=== PATIENT | male | born 1955 | race Caucasian/White ===

== ENCOUNTER 2018-03-13 11:19 | Inpatient (IN) | payer MEDICARE, BC ==
[~2018-03-13] VITALS: Ht 175.3 cm; Wt 107.0 kg
--- NOTE | ~2018-03-13 | PROC ---
[address] [address] PROCEDURE REPORT Name: KATT GEORGE Room: [address] IN M.R.#: [id number] Admission: 03/13/18 Attend Phys: Landon Ortiz, Discharge: 03/16/18 Date of : 55 Report #: [id number] THIS REPORT FOR: //name// For GI report, please see the Provation report in Perceptive 7. By: 1008Medical Records Staff AZUCENA /SLIM
[~2018-03-13 11:19] MED LIST: AMBIEN 5 MG TABL5 M1 PO; ASPIR 8181 M1 PO; BUTALB-APAP-CA1 EACH PO; CARISOPRODOL 3350 MG PO; CELEXA20 MG PO; CRESTOR10 MG PO; EXCEDRIN CAPLE1 EACH PO; FENOFIBRATE160 MG PO; HYDROXYZINE HCL25 M1 PO; MUCINEX D ER 11 EACH PO; MUCINEX TA600 MG/TA2 PO; NEURONTIN600 MG PO; NORCO 5-325 TA1 EACH PO; OMEPRAZOLE40 MG PO; REGLAN 10 MG TA10 MG PO; VITAMIN D2000 UNIT PO; VITAMINC500 PO; XANAX 0.5 MG0.5 MG PO; ZYRTEC10 MG PO; [UNRECOGNIZED DRUG - CODE] PO
[2018-03-13 11:20] VITALS: BP 104/61
[2018-03-13 11:41] LABS: ABSOLUTE EOSINOPHILS 0.3 thou/uL (0.0-0.7); ABSOLUTE LYMPHOCYTES 2.4 thou/uL (0.8-5.3); ABSOLUTE MONOCYTES 0.8 thou/uL (0.0-1.2); ABSOLUTE NEUTROPHILS 2.7 thou/uL (1.6-8.1); BASOPHILS 0.8 %; EOSINOPHILS 5.1 %; HEMATOCRIT 37.8 % (42.0-52.0); HEMOGLOBIN 12.7 gm/dL (14.0-18.0); LYMPHOCYTES 37.8 %; MCH 33.6 pg (26.0-34.0); MCHC 33.6 g/dL (28.0-37.0); MCV 100.1 fL (80.0-100.0); MONOCYTES 13.1 %; MPV 8.1 fl. (7.2-11.1); NUCLEATED RBCS 0 /100WBC; PLATELET COUNT* 126 thou/uL (150-400); POLYS 43.2 %; RBC 3.77 mil/uL (4.50-6.00); RDW-CV 13.6 % (10.5-14.5); WBC 6.3 thou/uL (4.0-11.0)
[2018-03-13 11:47] LABS: ANION GAP 11 mmol/L (7-16); BUN 14 mg/dL (7-18); CALCIUM 8.2 mg/dL (8.5-10.1); CHLORIDE 108 mmol/L (98-107); CO2 22 mmol/L (21-32); GLUCOSE 146 mg/dL (70-99); POTASSIUM 3.8 mmol/L (3.5-5.1); SODIUM 141 mmol/L (136-145)
[2018-03-13 11:57] LABS: ALKALINE PHOSPHATASE 39 U/L (46-116); SGOT 44 U/L (15-37); SGPT 39 U/L (30-65); TOTAL BILIRUBIN 0.3 mg/dL (<0.1-1.0); TOTAL PROTEIN 6.3 g/dL (6.4-8.2); TROPONIN-I LEVEL <0.06 ng/mL (<0.06)
[2018-03-13 14:16] LABS: APTT 27.5 Seconds (25.0-31.3); INR 1.1; PROTIME 11.2 Seconds (9.20-11.50)
[2018-03-13 14:52] VITALS: BP 119/58
[2018-03-13 15:15] VITALS: BP 117/54
[2018-03-13 15:58] VITALS: BP 117/46
[2018-03-13] MEDS ORDERED: COLACE100 MG PO (16:03)
[2018-03-13] MEDS ORDERED: IBU600 MG PO (16:03)
[2018-03-13] MEDS ORDERED: AMITRIPTYLINE100 MG PO (16:04)
[2018-03-13] MEDS ORDERED: METFORMIN HCL500 MG PO (16:04)
[2018-03-13] MEDS ORDERED: ZYRTEC10 M5 PO (16:05)
[2018-03-13] MEDS ORDERED: REGLAN 10 MG TA10 MG PO (16:07)
--- NOTE | 2018-03-13 17:09 | NUR ---
PATIENT ADM TO FLOOR AT 1515, REPORT FROM KIMBERLEY LEE IN ER. PATIENT A&OX4, 2L O2 VIA NC, IV LEFT AC FLUIDS INFUSSING. UP STAND BY, STEADY GIAT. NO C/O PAIN/N/V AT THIS TIME. REVIEWED ADMISSION ASSESSMENT WHILE SISTER AT BEDSIDE. PATIENT LIVES WITH SISTER, SISTER HELPS CARE FOR PATIENT. REVIEWED HOME MEDICATIONS, UPDATED MED REC. CONSULTED NEPHROLOGY AND UROLOGY, NOTHING TO BE DONE AT THIS TIME. CONSULTED GI FOR CONSTIPATION/DIARRHEA, NOT SEEN YET. NO OTHER CONCERNS AT THIS TIME. APPROPRIATE AND COOPORATIVE WITH CARE.
[2018-03-13 21:49] LABS: URINE BILIRUBIN NEGATIVE (Negative); URINE BLOOD 1+ (Negative); URINE CLARITY CLEAR; URINE COLOR YELLOW; URINE GLUCOSE-RANDOM NEGATIVE (Negative); URINE KETONES NEGATIVE (Negative); URINE LEUKOCYTES-REFLEX NEGATIVE (Negative); URINE NITRITE-REFLEX NEGATIVE (Negative); URINE PROTEIN NEGATIVE (Negative); URINE SPECIFIC GRAVITY <= 1.005 (1.005-1.030); URINE UROBILINOGEN 0.2 E.U./dl (0.2-1.0)
[2018-03-13 21:57] LABS: BACTERIA-REFLEX 1-9 Few /HPF (None Seen); CASTS None Seen /LPF (None Seen); MUCUS 0-3 Light strn/LPF (None Seen); SQUAMOUS NONE SEEN /LPF (0-3); URINE RBC 3-10 Few /HPF (0-2); URINE WBC-REFLEX None Seen /HPF (0-5)
[2018-03-13 21:58] LABS: CRYSTALS None Seen /LPF (None Seen)
[2018-03-14] VITALS: BP 123/66
[2018-03-14 04:30] LABS: HEMATOCRIT 36.8 % (42.0-52.0); HEMOGLOBIN 12.5 gm/dL (14.0-18.0); MCH 33.8 pg (26.0-34.0); MCHC 33.9 g/dL (28.0-37.0); MCV 99.8 fL (80.0-100.0); MPV 8.3 fl. (7.2-11.1); RBC 3.68 mil/uL (4.50-6.00); RDW-CV 13.9 % (10.5-14.5); WBC 7.9 thou/uL (4.0-11.0)
[2018-03-14 05:08] LABS: CALCIUM 8.2 mg/dL (8.5-10.1); CREATININE 0.9 mg/dL (0.6-1.3); MAGNESIUM 1.2 mg/dL (1.8-2.4); POTASSIUM 3.4 mmol/L (3.5-5.1)
--- NOTE | 2018-03-14 05:27 | NUR ---
PATIENT SLEPT VERY LITTLE THIS SHIFT. PATIENT WAS UP TO BATHROOM ABOUT EVERY HOUR AND HALF. IV FLUIDS CONTINUE TO INFUSE AT 100 ML/HR. PATIENT WAS GIVEN EXCEDRIN ONCE FOR PAIN. WILL CONTINUE TO MONITOR.
[2018-03-14 07:40] VITALS: BP 105/56
--- NOTE | 2018-03-14 12:58 | EKG ---
[place] [address] ELECTROCARDIOGRAM REPORT Name: KATT GEORGE Room: [address] ADM IN M.R.#: [id number] Admission: 03/13/18 Attend Phys: Landon Ortiz, Discharge: Date of : 55 Report #: [id number] THIS REPORT FOR: //name// [facility] ED Test Date: 2018-03-13 Test Time: 11:44:09 Pat Name: KATT GEORGE Department: Room: [facility] Gender: M [employer] Fund Sales Agent: : 1955 Requested By: Ric Pelaez Order Number: [id number] MD: J Luis Chambers Measurements Intervals [place] Rate: 70 P: 24 ID: [id number] QRS: 88 QRSD: 110 T: -9 QT: 415 QTc: 448 Interpretive Statements Sinus rhythm Ventricular premature complex Consider right ventricular hypertrophy ST elevation, consider inferior injury No previous ECG available for comparison Electronically Signed On 03-14-2018 12:58:14 RAW JUICE WEIGHER by J Luis Chambers [email or web address] <ELECTRONICALLY SIGNED> By: J Luis Chambers MD, FACC 03/14/18 1258 1144 1144 J Luis Chambers MD, [facility] /EPI
[2018-03-14 13:03] LABS: CALCIUM 8.5 mg/dL (8.5-10.1); CREATININE 0.9 mg/dL (0.6-1.3); MAGNESIUM 1.4 mg/dL (1.8-2.4); POTASSIUM 3.7 mmol/L (3.5-5.1)
[2018-03-14 16:46] VITALS: BP 124/67
--- NOTE | 2018-03-14 17:42 | NUR ---
PATIENT A&OX4, FORGETFUL, ROOM AIR, IV LEFT AC FLUIDS INFUSSING. UP STAND BY, STEADY GAIT. C/O GENERAL SORENESS FROM PREVIOUS FALL, RELEIF WITH MEDICATION. REPORTED DIARRHEA PRIOR TO ADMISSION, NO BM SINCE ARRIVING ON FLOOR YESTERDAY. NO OTHER CONCERNS AT THIS TIME. APPROPRIATE AND COOPORATIVE WITH CARE.
[2018-03-15] VITALS: BP 123/58
[2018-03-15 04:06] LABS: HEMOGLOBIN 12.4 gm/dL (14.0-18.0); MCH 33.6 pg (26.0-34.0); MCHC 33.4 g/dL (28.0-37.0); MCV 100.7 fL (80.0-100.0); MPV 8.5 fl. (7.2-11.1); RBC 3.68 mil/uL (4.50-6.00); RDW-CV 13.8 % (10.5-14.5); WBC 7.1 thou/uL (4.0-11.0)
[2018-03-15 04:22] LABS: CALCIUM 8.5 mg/dL (8.5-10.1); CREATININE 0.9 mg/dL (0.6-1.3); MAGNESIUM 1.7 mg/dL (1.8-2.4)
--- NOTE | 2018-03-15 06:34 | NUR ---
PATIENT SLEPT PART OF THE NIGHT. IV FLUIDS CONTINUE TO INFUSE. PATIENT HAD NO COMPLAINTS OF PAIN. PATIENT IS POSSIBLY GOING HOME TODAY. WILL CONTINUE TO MONITOR.
[2018-03-15 15:55] VITALS: BP 118/59
--- NOTE | 2018-03-15 16:37 | NUR ---
SW met with pt to complete initial assessment, introduce self, and SW role. Pt lives at home with his sister who is a retired nurse. Pt said that he hasn't slept in days. Pt is looking forward to PT today. Pt has a cane but will need a RW ordered at dc and SW with continue to follow to arrange for DME and provide assist with safe dc planning.
--- NOTE | 2018-03-15 17:04 | NUR ---
ASSESSMENT COMPLETE. PT ALERT AND ORIENTED X4. PT GIVEN PRN PAIN MEDICATION THIS AM FOR HEADACHE. PT DENIES N/V. PT ON CLEAR LIQUID DIET, WILL BE NPO AFTER MIDNIGHT FOR COLONOSCOPY TOMORROW. PT STARTED BOWEL PREP AT 1400. PT IS UP AD EFREN TO BSC. PT IS ON ROOM AIR WITH [place] SATS. IV FLUIDS INFUSING. PT SHOWERED TODAY. SKIN W/D/I. MAG REPLACED PER PROTOCOL. SEE ASSESSMENT AND VITALS FOR OTHER DETAILS. CALL LIGHT WITHIN REACH, WILL CONTINUE PLAN OF CARE
[2018-03-15 20:00] VITALS: BP 115/76
[2018-03-16] VITALS (8 sets, daily range): BP systolic 115–152; BP diastolic 72–79
[2018-03-16 04:07] LABS: HEMATOCRIT 37.6 % (42.0-52.0); HEMOGLOBIN 12.7 gm/dL (14.0-18.0); MCH 34.4 pg (26.0-34.0); MCHC 33.9 g/dL (28.0-37.0); MCV 101.4 fL (80.0-100.0); MPV 8.5 fl. (7.2-11.1); RBC 3.71 mil/uL (4.50-6.00); RDW-CV 13.9 % (10.5-14.5)
[2018-03-16 04:25] LABS: ALBUMIN 3.2 g/dL (3.4-5.0); CALCIUM 8.6 mg/dL (8.5-10.1); CREATININE 0.7 mg/dL (0.6-1.3); MAGNESIUM 1.6 mg/dL (1.8-2.4); POTASSIUM 4.2 mmol/L (3.5-5.1); TOTAL BILIRUBIN 0.5 mg/dL (<0.1-1.0); TOTAL PROTEIN 6.7 g/dL (6.4-8.2)
--- NOTE | 2018-03-16 06:43 | NUR ---
PT AWAKE MOST OF SHIFT. ASSESSMENT DOCUMENTED. MEDS GIVEN PER E-MAR. IV PATENT, FLUIDS INFUSING. NO REPORTS OF PAIN OR NAUSEA. PT ONLY DRANK 1/2 OF BOWEL PREP STATING HE COULD NOT DRINK ANY MORE. PT EDUCATED THAT HE WOULD NEED ENEMAS THIS BEFORE PROCEDURE HE STATED HE WOULD NOT DO THAT. WILL CONTINUE WITH PLAN OF CARE.
--- NOTE | 2018-03-16 08:07 | NUR ---
PTS STOOLS ARE NOW CLEAR WITH SOME SEDIMENT. PT STATES HE WILL ALLOW AND ENEMA IF NECISSARY. WILL CONTINUE TO MONIOR.
--- NOTE | 2018-03-16 12:52 | NUR ---
Pt to dc home today with sister. CHANDANA met with pt to discuss dc planning and pt in agreement for rolling walker; SW spoke with Katelynn at [facility] who accepted referral and SW faxed order and spoke with PT tech who will issure RW prior to pt dc. SW discussed that there were not HH orders or recommendation; pt says he feels confident after walking the halls that he would not want HH arranged anyway.
--- NOTE | 2018-03-16 17:17 | NUR ---
ASSESSMENT COMPLETE. PT ALERT AND ORIENTED X4. PT EGD/COLONOSCOPY DONE TODAY. PT ABLE TO TOLERATE DINNER, DC TO HOME WITH SISTER. IV DISCONTINUED WITHOUT ANY DIFFICULTY. DISCHARGE EDUCATION GIVEN AND PT VERBALIZES UNDERSTANDING. PT LEFT VIA WHEELCHAIR WITH NURSING STAFF TO PERSONAL VEHICLE WITH SISTER.
--- NOTE | 2018-03-17 17:09 | PATH ---
[address] [address] PATHOLOGY RPT PROCEDURE Name: GEORGERAF Room: [address] IN M.R.#: [id number] Admission: 03/13/18 Date of : 55 Discharge: 03/16/18 Report #: [id number] Path Case #: [id number] [facility] Accession Number: [id number] . 01 Material submitted: . PART A: DESCENDING COLON POLYP PART B: RECTAL POLYP . 01 Clinical history: . None provided . 02 Diagnosis: A. Descending colon polyp: - Tubular adenoma, negative for high-grade dysplasia. . B. Rectal polyp: - Most consistent with hyperplastic polyp, negative for high-grade dysplasia. (VLAD:daniel; 03/17/2018) QMS/03/17/2018 . 02 Electronically signed: . Isaiah Staton MD, Pathologist NPI- [id number] . 01 Gross description: . A. Received in formalin labeled "Raf George, descending colon polyp," is a single segment of kaur soft tissue measuring 0.5 cm in maximum dimension. The specimen is entirely submitted in cassette A1. . B. Received in formalin labeled "Raf George, rectal polyp," is a single segment of kaur soft tissue measuring 0.5 cm in maximum dimension. The specimen is entirely submitted in cassette B1. (TSD; 03/16/2018) TOB/TOB . 02 Pathologist provided ICD-10: D12.4, K62.1 . 02 CPT . 055132, 498166 Specimen Comment: A courtesy copy of this report has been sent to Specimen Comment: [phone]. Specimen Comment: Report sent to Performed at: [address] [id number] MD Valente Barr MD Phone: [phone] [place] [address] PATHOLOGY RPT PROCEDURE Name: RAF GEORGE Room: [address] IN M.R.#: [id number] Admission: 03/13/18 Date of : 55 Discharge: 03/16/18 Report #: [id number] Path Case #: [id number] Performed at: [address] [place] [id number] MD Isaiah Staton MD Phone: [phone]
--- NOTE | 2018-03-19 12:23 | CON ---
[address] [address] CONSULTATION Name: ARIELKATT Room: [address] IN M.R.#: [id number] Admission: 03/13/18 Attend Phys: Landon Ortiz, Discharge: 03/16/18 Date of : 55 Report #: [id number] THIS REPORT FOR: //name// CC: Luciana Ortiz DATE OF SERVICE: 03/15/2018 HISTORY OF PRESENT ILLNESS: This is a pleasant 62-year-old male, with past medical history significant for hypertension, hyperlipidemia, diabetes, who presented to the hospital with progressively worsening diarrhea for the last 5 days. The patient reports having about 4-5 bowel movements per day. The bowel movements are loose and watery and do not contain any blood or mucus. The patient reports that yesterday while walking upstairs, he lost consciousness, fell down and hit his head and this is when he was brought to the hospital. The patient denies having any bowel movements after presentation to the hospital. The patient also denies any significant abdominal pain, nausea, vomiting, fevers or chills. PAST MEDICAL HISTORY: Diabetes, hypertension and hyperlipidemia. PAST SURGICAL HISTORY: Nonsignificant. SOCIAL HISTORY: The patient denies smoking, alcohol or recreational drug use. FAMILY HISTORY: No significant family history of colorectal cancer. The patient had a colonoscopy performed 5 years back and this was apparently normal. REVIEW OF SYSTEMS: A comprehensive 10-point review of systems is negative except for what is mentioned in the HPI. PHYSICAL EXAMINATION: VITAL SIGNS: Temperature 37.4, pulse rate 97, respirations 16, blood pressure 123/58. GENERAL: The patient is awake, alert and oriented x 3. HEENT: Pupils are equal, round, reactive to light and accommodation. Mucous membranes are moist. There is no congestion. LUNGS: Clear to auscultation bilaterally. CARDIOVASCULAR: Rate and rhythm regular, S1, S2 present. ABDOMEN: Soft. There is no distention, guarding or rigidity. EXTREMITIES: Warm and well perfused. There is no edema. SKIN: Warm and dry. LABORATORY DATA: Sodium 143, potassium 4.0, chloride 107, bicarbonate 26, BUN 6, creatinine 0.9. Hemoglobin 12.4, hematocrit 37.0, MCV 100.7, WBC 7.1. Abdomen and pelvis CT, there is an enhancing [place] [address] CONSULTATION Name: KATT GEORGE Room: [address]#: [id number] Admission: 03/13/18 Attend Phys: Landon Ortiz, Discharge: 03/16/18 Date of : 55 Report #: [id number] right kidney measuring 4 x 5 cm in size. Mid and lower right kidney are unremarkable. Contralateral left kidney is also unremarkable. There is no left renal mass and nothing for renal obstruction. ASSESSMENT AND PLAN: A pleasant 62-year-old male, with past medical history of hypertension, diabetes and hyperlipidemia, presented with diarrhea for the last 4 days along with loss of consciousness. The patient incidentally was found to have a right-sided renal mass. We will plan for colonoscopy tomorrow morning to evaluate the cause of diarrhea. I would recommend urology consult for evaluation of the right-sided renal mass. Further recommendations will be based on the results of the endoscopy. <ELECTRONICALLY SIGNED> By: Jesse Tay MD 03/19/18 1223 2248 [id number] Tay MD /nt
--- NOTE | 2018-03-24 08:19 | CON ---
[address] [address] CONSULTATION Name: KATT GEORGE Room: [address] IN M.R.#: [id number] Admission: 03/13/18 Attend Phys: Landon Ortiz, Discharge: 03/16/18 Date of : 55 Report #: [id number] THIS REPORT FOR: //name// CC: Luciana Ortiz DATE OF SERVICE: 03/14/2018 NEPHROLOGY CONSULTATION CONSULTING PHYSICIAN: Landon Ortiz M.D. REASON FOR NEPHROLOGY CONSULTATION: Right kidney mass. REASON FOR ADMISSION: Fall and possible dehydration and diarrhea. HISTORY OF PRESENT ILLNESS: This is a 62-year-old very pleasant male who has past medical history of diabetes type 2 and other medical problems, who was having diarrhea for a few days and then he had a fall yesterday, after he became lightheaded. When he came to the hospital, he was sore and he had a CT abdomen and pelvis done, which showed a right upper kidney 4 x 5 cm renal mass, with contrast enhancing features. Urology was consulted. This finding is most consistent with renal cell cancer and they have recommended radical nephrectomy, which will be planned for next year. He did have 3-10 rbc's per high-powered field in his urine. He does not have any complaints right now. His potassium is slightly low at 3.4. He does take NSAIDs at home. His blood pressures have been controlled. ALLERGIES: TIZANIDINE. REVIEW OF SYSTEMS: As mentioned in the history of present illness. HOME MEDICATIONS: Include omeprazole, gabapentin, fenofibrate, rosuvastatin, alprazolam, citalopram, carisoprodol, Fioricet, docusate, ibuprofen, amitriptyline, metformin, cetirizine, metoclopramide, propranolol and Excedrin. PAST MEDICAL AND SURGICAL HISTORY: He has a history of diabetes mellitus type 2. SOCIAL HISTORY: He does not smoke now, does not use recreational drugs or use alcohol. FAMILY HISTORY: There is no family history of kidney disease. PHYSICAL EXAMINATION: [place] [address] CONSULTATION Name: KATT GEORGE Room: [address]#: [id number] Admission: 03/13/18 Attend Phys: Landon Ortiz, Discharge: 03/16/18 Date of : 55 Report #: [id number] VITAL SIGNS: Blood pressure is 123/66, respiratory rate is 20, pulse rate 77, temperature is 37.4 and pulse ox is 96% on room air. GENERAL: He is awake, alert and oriented x 3. HEAD, EYES, EARS, NOSE AND THROAT: Mucous membranes are moist. NECK: There is no JVD. CHEST: Clear to auscultation bilaterally. CARDIOVASCULAR: S1 and S2 normal. No murmurs or rubs. ABDOMEN: Soft, nontender and nondistended. Bowel sounds are present. LOWER EXTREMITIES: He has no edema. NEUROLOGICAL FUNCTION: Gross neurological function is intact. PSYCHIATRIC: Mood and affect seems to be normal. LABORATORY DATA: Hemoglobin is 12.5. Potassium is 3.4, sodium is 145 and creatinine is 0.9. Urine has 3-10 rbc's for high-powered field in his urine and all other labs are reviewed. IMAGING: CT abdomen and pelvis and other imaging studies were reviewed. ASSESSMENT: 1. Right kidney mass, most consistent with renal cell carcinoma. Urology has been consulted, recommended radical nephrectomy, which is going to be scheduled for next year. 2. Hypertension. Blood pressure seems controlled. 3. Diabetes type 2. 4. Hypokalemia, likely in the setting of poor oral intake for now and diarrhea. The patient is hungry now. Potassium is 3.4 today. 5. Microscopic hematuria, likely due to renal cell carcinoma. PLAN: From Nephrology standpoint, he is doing okay. I have recommended him to stay away from NSAIDs and he can follow up with us after his nephrectomy. Further care is as per Urology for now. Thank you for this consultation. I have the patient's potassium and please call with any questions. With this, I will sign off for now. I discussed with the patient as well as the patient's nurse. <ELECTRONICALLY SIGNED> By: Janey Gonzalez MD 03/24/18 0819 0829 [id number] Gonzalez MD /nt
--- NOTE | 2018-04-01 16:26 | CON ---
[address] [address] CONSULTATION Name: GEORGEKATT Room: [address] IN M.R.#: [id number] Admission: 03/13/18 Attend Phys: Landon Ortiz, Discharge: 03/16/18 Date of : 55 Report #: [id number] THIS REPORT FOR: //name// CC: [facility] Luciana Ortiz DATE OF SERVICE: 03/13/2018 REASON FOR CONSULTATION: Right renal mass. HISTORY OF PRESENT ILLNESS: The patient is a very pleasant 62-year-old male who was seen in the Emergency Room today for dehydration and fall. He has had recent diarrhea and became dehydrated and they think this is the reason he fell. His sister is very involved with his care and moved here to take care of him. He denies any flank pain or abdominal pain at this time. He denies any gross hematuria or difficulty voiding. He has never had any abdominal surgery. He smoked for 2 years in the remote past. Currently, he is feeling much better after fluid resuscitation. PAST MEDICAL HISTORY: Includes diabetes, gastroesophageal reflux. PAST SURGICAL HISTORY: None. ALLERGIES: TIZANIDINE. SOCIAL HISTORY: The patient lives with his sister. He smoked remotely for 2 years. Denies any alcohol or illicit drug use. FAMILY HISTORY: Negative for kidney cancer. REVIEW OF SYSTEMS: Twelve-point review of systems is performed and is negative except as noted above in HPI. MEDICATIONS: Reviewed and are per inpatient medical record. PHYSICAL EXAMINATION: VITAL SIGNS: Temperature is 37, pulse 68, respirations 16, blood pressure 117/46. He is 96% on room air. GENERAL: He is a well-developed, well-nourished, obese white male, in no acute distress. He is very pleasant and cooperative. HEENT: Normocephalic, atraumatic. LUNGS: Respirations are unlabored. HEART: Regular. ABDOMEN: Soft, obese, nontender, nondistended. GENITOURINARY: He has a normal uncircumcised phallus. Scrotum [place] [address] CONSULTATION Name: KATT GEORGE Room: [address] IN [facility]#: [id number] Admission: 03/13/18 Attend Phys: Landon Ortiz, Discharge: 03/16/18 Date of : 55 Report #: [id number] he has difficult to palpate bilateral testes. I think they are both probably significantly atrophic as the patient reports history of mumps in the past and he also reports history of hypogonadism. EXTREMITIES: Without clubbing, cyanosis or edema. SKIN: Without lesions. LABORATORY DATA: His white count is 6.3, hemoglobin 12.7, hematocrit 37.8, platelets are low at 126. His BMP is normal with the exception of a mildly elevated chloride at 108, glucose of 146 and mildly low calcium of 8.2. His creatinine is 1.0 and BUN is 14. Coagulation parameters are normal. Urinalysis is pending. CT scan was reviewed. This was with IV contrast. This reveals a 5 cm right posterior renal mass involving the upper posterior right kidney. The rest of the kidney is unremarkable and the left kidney is also normal. There is no hydronephrosis or stones. ASSESSMENT AND PLAN: 1. Right renal mass. 2. Anemia. 3. Thrombocytopenia. I discussed with the patient and his sister the findings on the CAT scan. This appears concerning for a renal cell cancer. He will need surgical treatment of this. We discussed the options including partial versus radical nephrectomy. Given the location and size of his tumor, this may be a very difficult partial and he may be better served with a radical nephrectomy, but I will review his films with my partners. It would also be helpful if his anemia and thrombocytopenia were worked up to ensure there is no underlying problem before we start looking into scheduling surgery. This certainly can be done on an elective outpatient basis and nothing inpatient is needed at this time. I gave the patient and his sister my card and we will arrange followup in the future. He already has an appointment with Dr. Warner his primary doctor in March and he can hopefully receive preoperative clearance at that appointment as well. Urology will sign off, but will be available if needed. <ELECTRONICALLY SIGNED> By: Janet Cameron MD 04/01/18 1626 1621 [id number] Cameron MD /nt
== END 2018-03-16 17:04 | disposition home or self-care (01) | DRG 687 ==
LOC: M.ERS 11:19 → M.3W 14:04 → M.TBA-ER 14:04 → M.3W 15:10
PROVIDERS: Family Medicine; Internal Medicine; Internal Medicine Nephrology; ADMIT Family Medicine
PROC: 0DBM8ZZ Excision of Descending Colon, Via Natural or Artificial Opening Endoscopic (ICD-10-PCS; principal; 2018-03-16)
PROC: 0DJ08ZZ Inspection of Upper Intestinal Tract, Via Natural or Artificial Opening Endoscopic (ICD-10-PCS; principal; 2018-03-16)
PROC: 0DBP8ZZ Excision of Rectum, Via Natural or Artificial Opening Endoscopic (ICD-10-PCS; principal; 2018-03-16)
DX: C64.1 Malignant neoplasm of right kidney, except renal pelvis (principal); N17.9 Acute kidney failure, unspecified; E44.1 Mild protein-calorie malnutrition; Y92.89 Other specified places as the place of occurrence of the external cause; E66.9 Obesity, unspecified; G31.9 Degenerative disease of nervous system, unspecified; E87.6 Hypokalemia; K59.00 Constipation, unspecified; K21.9 Gastro-esophageal reflux disease without esophagitis; D69.6 Thrombocytopenia, unspecified; W10.8XXA Fall (on) (from) other stairs and steps, initial encounter; R31.29 Other microscopic hematuria; I10 Essential (primary) hypertension; E78.5 Hyperlipidemia, unspecified; K57.30 Diverticulosis of large intestine without perforation or abscess without bleeding; K64.4 Residual hemorrhoidal skin tags; D12.4 Benign neoplasm of descending colon; K62.1 Rectal polyp; K44.9 Diaphragmatic hernia without obstruction or gangrene; R26.9 Unspecified abnormalities of gait and mobility; E83.42 Hypomagnesemia; E11.9 Type 2 diabetes mellitus without complications; E86.0 Dehydration; Z88.8 Allergy status to other drugs, medicaments and biological substances; Z79.82 Long term (current) use of aspirin; Z79.899 Other long term (current) drug therapy; Z79.2 Long term (current) use of antibiotics; Y93.89 Activity, other specified; Y99.8 Other external cause status; Z87.891 Personal history of nicotine dependence; Z68.34 Body mass index [BMI] 34.0-34.9, adult; A08.4 Viral intestinal infection, unspecified; D75.89 Other specified diseases of blood and blood-forming organs

== ENCOUNTER → 2018-06-16 | Outpatient (CLI) | payer MEDICARE, BC ==
[~2018-06-16] MED LIST changes: +AMITRIPTYLINE100 MG PO; +COLACE100 MG PO; +IBU600 MG PO; +METFORMIN HCL500 MG PO; +ZYRTEC10 M5 PO
== END ==
LOC: M.RAD 15:11
DX: N28.89 Other specified disorders of kidney and ureter (principal)

== ENCOUNTER → 2018-08-19 | Outpatient (CLI) | payer BC | LOC: M.RAD 12:49 | DX: C64.1 Malignant neoplasm of right kidney, except renal pelvis (principal); Z88.0 Allergy status to penicillin; Z88.8 Allergy status to other drugs, medicaments and biological substances ==

== ENCOUNTER 2018-10-29 13:46 | Emergency (ER) | payer BC ==
[~2018-10-29] VITALS: Ht 167.6 cm; Wt 102.5 kg
[2018-10-29 14:32] LABS: ABSOLUTE BASOPHILS 0.1 thou/uL (0.0-0.2); ABSOLUTE EOSINOPHILS 0.2 thou/uL (0.0-0.7); ABSOLUTE LYMPHOCYTES 2.6 thou/uL (0.8-5.3); ABSOLUTE MONOCYTES 0.8 thou/uL (0.0-1.2); ABSOLUTE NEUTROPHILS 3.3 thou/uL (1.6-8.1); EOSINOPHILS 2.5 %; HEMATOCRIT 40.3 % (42.0-52.0); HEMOGLOBIN 13.6 gm/dL (14.0-18.0); LYMPHOCYTES 37.8 %; MCH 34.3 pg (26.0-34.0); MCHC 33.8 g/dL (28.0-37.0); MCV 101.6 fL (80.0-100.0); MONOCYTES 10.9 %; MPV 8.1 fl. (7.2-11.1); NUCLEATED RBCS 0 /100WBC; PLATELET COUNT* 134 thou/uL (150-400); POLYS 47.8 %; RBC 3.96 mil/uL (4.50-6.00); RDW-CV 14.1 % (10.5-14.5); WBC 6.9 thou/uL (4.0-11.0)
[2018-10-29 14:35] LABS: BE -4.1 mmol/L (-2 to +3); PCO2 39.7 mmHg (35.0-45.0); PO2 63.3 mmHg (75.0-100.0); pH 7.346 (7.340-7.450)
[2018-10-29 14:42] LABS: CALCIUM 9.3 mg/dL (8.5-10.1); CREATININE 1.7 mg/dL (0.6-1.3); POTASSIUM 4.9 mmol/L (3.5-5.1)
[2018-10-29 14:46] LABS: ALBUMIN 3.6 g/dL (3.4-5.0); MAGNESIUM 1.4 mg/dL (1.8-2.4); TOTAL BILIRUBIN 0.6 mg/dL (<0.1-1.0); TOTAL PROTEIN 7.4 g/dL (6.4-8.2)
[2018-10-29 14:57] LABS: URINE BILIRUBIN NEGATIVE (Negative); URINE BLOOD NEGATIVE (Negative); URINE CLARITY CLEAR; URINE COLOR YELLOW; URINE GLUCOSE-RANDOM NEGATIVE (Negative); URINE KETONES NEGATIVE (Negative); URINE LEUKOCYTES-REFLEX NEGATIVE (Negative); URINE NITRITE-REFLEX NEGATIVE (Negative); URINE PROTEIN NEGATIVE (Negative); URINE SPECIFIC GRAVITY <= 1.005 (1.005-1.030); URINE UROBILINOGEN 0.2 E.U./dl (0.2-1.0)
[2018-10-29 15:05] LABS: APTT 26.6 Seconds (25.0-31.3); INR 1.1; PROTIME 11.1 Seconds (9.20-11.50)
[2018-10-29 18:13] VITALS: BP 132/75
--- NOTE | 2018-10-30 12:49 | EKG ---
[place] [address] ELECTROCARDIOGRAM REPORT Name: KATT GEORGE Room: [facility]#: [id number] Admission: 10/29/18 Attend Phys: Discharge: 10/29/18 Date of : 55 Report #: [id number] THIS REPORT FOR: //name// [facility] ED Test Date: 2018-10-29 Test Time: 15:11:03 Pat Name: KATT GEORGE Department: Room: Gender: M Branch Manager Trainee: : 1955 Requested By: Stephania Adam Order Number: [id number] MD: Amadeo Ordoñez Measurements Intervals [place] Rate: 69 P: 10 MS: 158 QRS: -21 QRSD: 136 T: -9 QT: 443 QTc: 475 Interpretive Statements Sinus rhythm Right bundle branch block Compared to ECG 03/13/2018 11:44:09 supraventricular premature complex(es) no longer present Electronically Signed On 10-30-2018 12:49:10 CDT by Amadeo Ordoñez [email or web address] <ELECTRONICALLY SIGNED> By: Amadeo Ordoñez MD, [facility] 10/30/18 1249 151 10 Amadeo Ordoñez MD, [facility] /EPI
== END 2018-10-29 18:15 | disposition home or self-care (01) ==
LOC: M.ERS 13:46
PROVIDERS: Personal Emergency Response Attendant
DX: R53.1 Weakness (principal); T50.995A Adverse effect of other drugs, medicaments and biological substances, initial encounter; E11.9 Type 2 diabetes mellitus without complications; Z88.0 Allergy status to penicillin; Z88.8 Allergy status to other drugs, medicaments and biological substances; Y92.89 Other specified places as the place of occurrence of the external cause

== ENCOUNTER → 2019-03-03 | Outpatient (CLI) | payer BC | LOC: M.RAD 15:11 | DX: C64.1 Malignant neoplasm of right kidney, except renal pelvis (principal) ==

== ENCOUNTER → 2020-06-08 | Outpatient (CLI) | payer BC | LOC: M.RAD 12:14 | PROVIDERS: ATTEND Internal Medicine Hematology & Oncology | DX: C64.1 Malignant neoplasm of right kidney, except renal pelvis (principal) ==